=== PATIENT | male | born 1970 | race Caucasian/White ===

== ENCOUNTER 2017-08-22 07:48 | Emergency (ER) | payer OTHER ==
[~2017-08-22] VITALS: Ht 188 cm; Wt 98.9 kg
[2017-08-22] MEDS ORDERED: LISINOPRIL10 MG PO (08:03)
[2017-08-22] MEDS ORDERED: VENTOLIN HFA18 GM INH (08:04)
--- NOTE | 2017-08-23 07:01 | EKG ---
[facility] [address] [facility] [place], [place] [address] Signed Sinus bradycardia Right bundle branch block Abnormal ECG No previous ECGs available Confirmed by JORGE COTTRELL MD ([id number]) on 08/23/2017 7:01:17 AM Electronically Signed By: JORGE COTTRELL MD 08/23/17 0701 PATIENT NAME: CATHY SANTOYO Electrocardiogram DATE OF : 70 PHYSICIAN: JORGE COTTRELL MD REPORT #: [id number] REPORT IS CONFIDENTIAL AND NOT TO BE RELEASED WITHOUT AUTHORIZATION
== END 2017-08-22 14:47 | disposition home or self-care (01) ==
LOC: ED 07:48
DX: R55 Syncope and collapse (principal); Z79.899 Other long term (current) drug therapy
CPT/HCPCS: 36415; 70450; 70544; 70553; 80053; 84484; 85025; 93005; 93010; 99284; A9579

== ENCOUNTER 2018-11-12 07:37 | Day surgery (SDC) | payer OTHER ==
[~2018-11-12] VITALS: Ht 188 cm; Wt 98.9 kg
[~2018-11-12 07:37] MED LIST: ADVAIR 250-501 EACH INH; EPIPEN 2-P0.3 MG/0.3 IM; LISINOPRIL-HCT1 EACH PO; LISINOPRIL10 MG PO; VENTOLIN HFA18 GM INH
--- NOTE | 2018-11-12 09:18 | NUR ---
11/12/18 0918 Jayleen Ahuja 0915-PATIENT ARRIVED TO PACU ON 2L NC RR EVEN. PATIENT DROWSY AROUSES TO VERBAL STIMULI LAYING LEFT LATERAL. ABDOMEN SOFT.
--- NOTE | 2018-11-12 09:51 | OR ---
[facility] [address] [place], [place] [address] Signed DATE OF OPERATION: 11/12/2018 SURGEON: Jay Limon MD PREOPERATIVE DIAGNOSES: 1. Paternal cousin with colon cancer at age 38. 2. Paternal grandmother with colon cancer at age 60. POSTOPERATIVE DIAGNOSES: 1. Polyps in proximal right colon, mid/distal right colon, 90 cm, 52 cm, 22 cm and 8 cm. 2. Minimal internal hemorrhoids. PROCEDURE PERFORMED: Colonoscopy without biopsy. ESTIMATED BLOOD LOSS: None. INDICATIONS: Cathy is a 48-year-old gentleman, who was asked to see me for his initial screening colonoscopy. We know his paternal 1st cousin was diagnosed and of stage IV colon cancer at age 38. His paternal grandmother also had colon cancer in her 60s. Cathy himself has no lower GI complaints. I gave Kaya pamphlet on colonoscopy. We looked at that together along with the risks including, but not limited to gas, bloating, crampy abdominal pain, bleeding, perforation, requiring surgery, and missed diagnosis. We also discussed the need for IV conscious sedation. He had expressed understanding and wished to proceed. DESCRIPTION OF PROCEDURE: Cathy was taken into our endoscopy suite and placed in the left lateral decubitus position. He was given divided doses of 6 mg of Versed and 125 mcg of fentanyl to cover the case. A digital rectal exam was performed and this was unremarkable. The adult colonoscope was then introduced and advanced under direct visualization of camera into the cecum itself. His prep was good. We could easily see the appendiceal orifice and the ileocecal valve. The scope was slowly withdrawn. Pictures were taken throughout for photodocumentation. His polyps were easily removed with the help of hot biopsy forceps. The largest polyp was in the mid to distal right colon, probably 7 mm acrossed. They are all sessile in nature. No diverticula noted. The scope was then retroflexed. He does have some very minimal internal hemorrhoid tissue. After this, the gas was suctioned out and the colonoscope removed. Cathy tolerated the procedure Electronically Signed By: JAY LIMON MD 11/12/18 0951 PATIENT NAME: CATHY SANTOYO OPERATIVE REPORT DATE OF : 70 REPORT #: [id number] PHYSICIAN: JAY LIMON MD PCP: OTHER PCP REPORT IS CONFIDENTIAL AND NOT TO BE RELEASED WITHOUT AUTHORIZATION [facility] [address] [place] [id number] Signed quite well. RECOMMENDATIONS: I will see Cathy back in my office in 7 to 14 days to review his results. MD NA Toscano/JUVE /[id number] cc: ALTON Hunter MD Copies: JAY LIMON MD ~ Electronically Signed By: JAY LIMON MD 11/12/18 0951 PATIENT NAME: CATHY SANTOYO OPERATIVE REPORT DATE OF : 70 REPORT #: [id number] PHYSICIAN: JAY LIMON MD PCP: OTHER PCP REPORT IS CONFIDENTIAL AND NOT TO BE RELEASED WITHOUT AUTHORIZATION
== END 2018-11-12 10:00 | disposition home or self-care (01) ==
LOC: OPS 07:37 → DS 09:00 → OPS 09:00
PROVIDERS: Colon & Rectal Surgery
PROC: 0DBE8ZZ Excision of Large Intestine, Via Natural or Artificial Opening Endoscopic (ICD-10-PCS; 2018-11-12)
PROC: 0DBK8ZZ Excision of Ascending Colon, Via Natural or Artificial Opening Endoscopic (ICD-10-PCS; principal; 2018-11-12 09:00)
DX: Z12.11 Encounter for screening for malignant neoplasm of colon (principal); K63.5 Polyp of colon; K64.8 Other hemorrhoids; J44.9 Chronic obstructive pulmonary disease, unspecified; E78.5 Hyperlipidemia, unspecified; F17.220 Nicotine dependence, chewing tobacco, uncomplicated; Z80.0 Family history of malignant neoplasm of digestive organs; Z79.899 Other long term (current) drug therapy
CPT/HCPCS: 99153; G0500; J2250; J3010

== ENCOUNTER 2019-10-05 04:14 | Emergency (ER) | payer OTHER ==
[~2019-10-05] VITALS: Ht 182.9 cm; Wt 97.5 kg
== END 2019-10-05 05:48 | disposition home or self-care (01) ==
LOC: ED 04:14
DX: G56.32 Lesion of radial nerve, left upper limb (principal); I10 Essential (primary) hypertension; F17.200 Nicotine dependence, unspecified, uncomplicated; Z79.899 Other long term (current) drug therapy
CPT/HCPCS: 70450; 80053; 85025; 99284-25

== ENCOUNTER 2023-04-19 18:35 | Emergency (ER) | payer OTHER ==
[~2023-04-19] VITALS: Ht 182.9 cm; Wt 90.7 kg
[2023-04-19] MEDS ORDERED: FLUTICASONE-SA1 EAC4 INH (18:40)
[2023-04-19] MEDS ORDERED: LISINOPRIL40 MG PO (18:40)
[2023-04-19] MEDS ORDERED: AMLODIPINE BESY10 MG PO (18:41)
[2023-04-19 18:53] LABS: BASOPHILS 1.3 % (0-2); EOSINOPHILS 12.9 % (0-6); HEMATOCRIT 42.3 % (35.0-50.0); HEMOGLOBIN 14.5 g/dL (12.0-18.0); LYMPHOCYTES 16.1 % (24-44); MCH 31.7 (27-36); MCHC 34.2 g/dl (30-36); MCV 92.8 fl (81-99); MONOCYTES 5.8 % (0-12); NEUTROPHILS 63.9 % (39-80); PLATELET COUNT 288 K/uL (140-440); RBC 4.56 M/ul (4.3-5.7); RDW 13.4 (10.5-15.0)
[2023-04-19 19:10] LABS: ALBUMIN 4.4 g/dL (3.4-5.0); ALBUMIN/GLOBULIN RATIO 1.26 (1.1-2.4); BILIRUBIN, TOTAL 0.6 ng/dL (0.2-1.0); BUN/CREATININE RATIO 22.33 (6.0-28.6); CALCIUM 9.5 mg/dL (8.5-10.1); CREATININE, SERUM 1.03 mg/dL (0.70-1.30); MAGNESIUM 2.2 mg/dL (1.8-2.4); PROTEIN, TOTAL 7.9 g/dL (6.4-8.2)
[2023-04-19] MEDS ORDERED: CYCLOBENZAPRINE10 MG PO (20:31)
[2023-04-19 20:58] VITALS: BP 132/74
--- NOTE | 2023-04-20 19:44 | EKG ---
[facility] [address] [facility] [place] [address] Signed Sinus bradycardia Right bundle branch block Abnormal ECG When compared with ECG of 22-AUG-2017 08:12, T wave inversion no longer evident in Inferior leads Confirmed by EKTA STOREY MD ([id number]) on 04/20/2023 7:44:45 PM Electronically Signed By: EKTA STOREY 04/20/231943 PATIENT NAME: NATANAELCATHY RICHA Electrocardiogram DATE OF : 70 PHYSICIAN: EKTA STOREY REPORT #: [id number] REPORT IS CONFIDENTIAL AND NOT TO BE RELEASED WITHOUT AUTHORIZATION
== END 2023-04-19 20:58 | disposition home or self-care (01) ==
LOC: ED 18:35
PROVIDERS: Emergency Medicine
DX: R07.89 Other chest pain (principal); I10 Essential (primary) hypertension; F17.200 Nicotine dependence, unspecified, uncomplicated; Z79.51 Long term (current) use of inhaled steroids; Z79.899 Other long term (current) drug therapy
CPT/HCPCS: 36415; 71045; 80053; 83735; 83880; 84484; 85025; 85379; 93005; 93010; 99285-25

== ENCOUNTER 2024-08-19 06:14 | Day surgery (SDC) | payer OTHER ==
[~2024-08-19] VITALS: Ht 182.9 cm; Wt 93.1 kg
[~2024-08-19 06:14] MED LIST changes: +AMLODIPINE BESY10 MG PO; +CYCLOBENZAPRINE10 MG PO; +FLUTICASONE-SA1 EAC4 INH; +LISINOPRIL40 MG PO; +MIDAZOLAM HCL 5 MG/5 ML VIAL IV PRN; +fentaNYL citrate 100 MCG/2 ML VIAL IV PRN
[2024-08-19] MEDS ORDERED: fentaNYL citrate 100 MCG/2 ML VIAL ONE (06:24)
[2024-08-19] MEDS ORDERED: MIDAZOLAM HCL 5 MG/5 ML VIAL ONE (06:24)
[2024-08-19 06:33] VITALS: BP 137/87
[2024-08-19] MEDS ORDERED: LIDOCAINE HCL 1% 5 ML SDV INJ ONE (07:00)
[2024-08-19] MEDS ORDERED: IBLOOD GLUCOSE TEST STRIP 1 EA TEST VI PRN (07:00)
[2024-08-19] MEDS ORDERED: LACTATED RINGER'S 1,000 ML IV SCH (07:00)
--- NOTE | 2024-08-19 07:36 | NUR ---
PT NOT AVAILABLE FOR VISIT. PROVIDED PRAYER.
--- NOTE | 2024-08-19 07:58 | NUR ---
08/19/24 0758 Jayleen Ahuja 1952-PATIENT ARRIVED TO PACU ON RA RR EVEN. PATIENT LAYING LEFT LATERAL DROWSY AROUSES TO VERBAL STIMULI DENIES PAIN OR NAUSEA. ABDOMEN SOFT. IVF INFUSING. STOP BANG SCORE OF 3.
[2024-08-19 08:26] VITALS: BP 126/89
--- NOTE | 2024-08-19 09:12 | OR ---
[facility] [address] [place], [place] [address] Signed DATE OF OPERATION: 08/19/2024 SURGEON: Jay Limon MD PREOPERATIVE DIAGNOSES: 1. Paternal grandmother with colon cancer in her 60s. 2. A paternal 1st cousin with stage IV colon cancer at age 38. 3. Personal history of hyperplastic colonic polyps in 2019 at age 48. 4. Internal hemorrhoids. POSTOPERATIVE DIAGNOSES: 1. Minimal shallow left-sided diverticulosis. 2. Minimal internal hemorrhoids. PROCEDURE: Colonoscopy without biopsy. ESTIMATED BLOOD LOSS: None. INDICATIONS: Cathy is a 54-year-old gentleman, asked to see me for his 2nd colonoscopy. I helped him in 2019 at the age of 48. His paternal grandmother had colon cancer in her 60s. A paternal 1st cousin was diagnosed with stage IV colon cancer at age 38. We found five small hyperplastic polyps for Cathy. He also had small internal hemorrhoids. He did great with 6 mg of Versed and 125 mcg of fentanyl. 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 He said that is a nice job. He keeps himself good shape by exercising on a regular basis. He said he has no lower GI complaints. In the office, I gave Kaya pamphlet on colonoscopy. We had reviewed the nature of the test along with the risk including, but not limited to gas bloating, crampy abdominal pain, bleeding, perforation requiring surgery and missed diagnosis. We also reviewed the written instructions for the bowel prep line by line. He recalls the bowel prep quite well. He also understands the need to have an adult person take him home afterwards. He had expressed understanding and wished to proceed. DESCRIPTION OF PROCEDURE: Cathy was taken into our endoscopy suite and placed in the left lateral decubitus position. He was given 5 mg of Versed and 150 mcg of fentanyl to cover the case. A digital rectal exam was performed. He had no external hemorrhoids. He has good sphincter tone. There were no masses. His prostate is slightly enlarged and moderately Electronically Signed By: JAY ILMON MD 08/19/24 0912 PATIENT NAME: CATHY SANTOYO OPERATIVE REPORT DATE OF : 70 REPORT #: [id number] PHYSICIAN: JAY LIMON MD PCP: MIRIAM ALMANZA MD REPORT IS CONFIDENTIAL AND NOT TO BE RELEASED WITHOUT AUTHORIZATION [facility] [address] [place] [id number] Signed indurated. The adult colonoscope was introduced and advanced under direct visualization of the camera without difficulty. His prep was quite excellent. We could easily see the appendiceal orifice and the ileocecal valve. The scope was slowly withdrawn. We took several pictures throughout for photodocumentation. He has just a few very shallow tiny diverticula in the left side of his colon. The rectum was unremarkable. Upon retroflexion of the scope, he has very minimal internal hemorrhoid tissue. After this, the gas was suctioned out and the colonoscope removed. Cathy tolerated the procedure quite well. RECOMMENDATIONS: Cathy can return in 5 years for repeat colonoscopy given his family history. Jay Limon MD ALB/MODL /[id number] cc: MD Miriam Toscnao MD Copies: JAY LIMON MD, RUSSEL J MD ~ Electronically Signed By: JAY LIMON MD 08/19/24 0912 PATIENT NAME: CATHY SANTOYO OPERATIVE REPORT DATE OF : 70 REPORT #: [id number] PHYSICIAN: JAY LIMON MD PCP: MIRIAM ALMANZA MD REPORT IS CONFIDENTIAL AND NOT TO BE RELEASED WITHOUT AUTHORIZATION
== END 2024-08-19 08:30 | disposition home or self-care (01) ==
LOC: DS 06:14
PROVIDERS: ATTEND Colon & Rectal Surgery
PROC: 0DJD8ZZ Inspection of Lower Intestinal Tract, Via Natural or Artificial Opening Endoscopic (ICD-10-PCS; principal; 2024-08-19 07:30)
DX: Z12.11 Encounter for screening for malignant neoplasm of colon (principal); K57.30 Diverticulosis of large intestine without perforation or abscess without bleeding; K64.8 Other hemorrhoids; I10 Essential (primary) hypertension; J45.909 Unspecified asthma, uncomplicated; Z86.0102 Personal history of hyperplastic colon polyps; Z87.891 Personal history of nicotine dependence; Z79.899 Other long term (current) drug therapy; Z91.030 Bee allergy status; Z80.0 Family history of malignant neoplasm of digestive organs
CPT/HCPCS: 99153; G0500; J2250; J3010